=== PATIENT | male | born 1980 | race African-American/Black ===

== ENCOUNTER 2017-05-31 10:15 | Emergency (ER) | payer BC ==
[~2017-05-31] VITALS: Wt 90.9 kg
[~2017-05-31 10:15] MED LIST: ALBU8.5H3 INH; ASPI81TA3 PO; METO-448 PO
[2017-05-31] MEDS ORDERED: BACI28.34 TOP (11:01)
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
== END 2017-05-31 12:48 | disposition home or self-care (01) ==
LOC: FTE 10:15
DX: S01.111A Laceration without foreign body of right eyelid and periocular area, initial encounter (principal); W22.8XXA Striking against or struck by other objects, initial encounter; Y92.9 Unspecified place or not applicable; Z79.82 Long term (current) use of aspirin
CPT/HCPCS: 99283